=== PATIENT | male | born 1965 | race Caucasian/White ===

== ENCOUNTER 2017-10-15 10:50 | Emergency (ER) | payer OTHER ==
[~2017-10-15] VITALS: Ht 188 cm; Wt 101.2 kg
[2017-10-15 10:54] VITALS: BP 154/93
--- NOTE | 2017-10-15 12:26 | ED ANKLE/FOOT INJURY COMPLAINT ---
History of Present Illness General Chief Complaint: Foot or Ankle Injury Stated Complaint: LT FOOT PAIN Source: patient Exam Limitations: no limitations Vital Signs & Intake/Output Vital Signs & Intake/Output Vital Signs Date Time Temp Pulse Resp B/P B/P Pulse O2 O2 Flow FiO2 Mean Ox Delivery Rate 10/15 1054 98.0 72 18 154/93 98 Room Air ED Intake and Output 10/16 0000 10/15 1200 Intake Total Output Total Balance Patient 223 lb Weight Allergies Coded Allergies: Penicillins (Intermediate, VOMITING, HIVES 10/15/17) Triage Note: 51M STEPPED ON A ROCK ON 10/08 AND FOOT GOT CAUGHT AND BENT BACK WHILE WORKING. WAS TOLD HE HAS TO HAVE IT CHECKED OUT FOR CLEARANCE TO GO BACK TO WORK. AMBULATORY WITH STEADY GAIT. STATES IT GETS SWOLLEN AT TIMES. Triage Nurses Notes Reviewed? yes Occurred: 10/08 Duration: week(s): (1), better, continues in ED Timing: single episode today Severity: mild, moderate Severity Numbers: 6 Pain/Injury Location: Left: Foot, Ankle. Method of Injury: twisted No Modifying Factors: none HPI: 51-year-old male with no medical history presents for evaluation of pain and swelling to his left foot and ankle. Patient reports that on October 08 of this year he stepped on a rock causing his left foot and ankle to twist. He did not fall there is no history of loss of consciousness. He reports since then he has had pain and swelling over the dorsum of the foot and the lateral malleolus. He has been able to walk without difficulty. He states that the pain is swelling will come and go usually is worse after walking. He's been taking ibuprofen and icing it with some improvement. No numbness or tingling in her knee pain no other injuries. (Orlando Tyson) Past History Travel History Traveled to [place] past 21 day No Medical History Any Pertinent Medical History? see below for history Surgical History Surgical History: non-contributory Psychosocial History What is your primary language Colombian Tobacco Use: Never used Family History Hx Contributory? No (Orlando Tyson) Review of Systems Review of Systems Constitutional: Reports: no symptoms. EENTM: Reports: no symptoms. Respiratory: Reports: no symptoms. Cardiovascular: Reports: no symptoms. GI: Reports: no symptoms. Genitourinary: Reports: no symptoms. Musculoskeletal: Reports: joint pain, joint swelling. Skin: Reports: no symptoms. Neurological/Psychological: Reports: no symptoms. Hematologic/Endocrine: Reports: no symptoms. Immunologic/Allergic: Reports: no symptoms. All Other Systems: Reviewed and Negative (Orlando Tyson) Physical Exam Physical Exam General Appearance: well developed/nourished, no apparent distress, alert, awake Head: atraumatic, normal appearance Eyes: Bilateral: normal appearance, EOMI. Ears, Nose, Throat: hearing grossly normal Neck: normal inspection, supple, full range of motion Cardiovascular/Respiratory: no respiratory distress Leg/Knee/Thigh Left: normal range of motion, normal inspection Leg/Knee/Thigh Right: normal range of motion, normal inspection Ankle Left: normal range of motion, soft tissue tenderness, swelling, tenderness , there is mild soft tissue swelling and tenderness palpation in the area of the lateral malleolus. No bruising no gross deformity for range motion is intact neurovascular spine attacked Ankle Right: normal inspection, normal range of motion Foot Left: normal range of motion, there is mild soft tissue swelling and tenderness over the dorsum of the foot. No bruising no lacerations or abrasions. Full range motion is intact neurovascular spine attacked patient is able to walk and bear weight without difficulty Foot Right: normal inspection, normal range of motion Neuro/Vascular: normal motor function, normal sensation Tendon: normal tendon function Skin: intact, normal color, warm/dry (Orlando Tyson) Progress Differential Diagnosis: cellulitis, gout, fracture, dislocation, sprain, contusion Plan of Care: Patient is here for evaluation of left foot and ankle pain after an injury about one week ago. On exam his pain and swelling of the dorsum of the foot and lateral malleolus. Full range motion is intact. Walking bear weight. X-rays were obtained and are negative for fracture. Arun wrap applied advised rest ice elevation compression. Patient declines crutches. Continue ibuprofen as needed for pain. Patient was advised to rest he was given a work note. Follow-up with primary care doctor or podiatry. Discussed return precautions patient agrees the plan Diagnostic Imaging: Viewed by Me: Radiology Read. Discussed w/RAD: Radiology Read. Radiology Impression: PATIENT: DALE GAMBLE PRESENT AGE: 51 PATIENT ACCOUNT NO: [id number] : 65 LOCATION: [facility] ORDERING PHYSICIAN: Orlando TOLENTINO SERVICE DATE: 10/15/17 EXAM TYPE: RAD - XRY- ANKLE 3 OR MORE VIEWS L; XRY-FOOT COMPLETE, LEFT EXAMINATION: LEFT ANKLE 3 VIEWS LEFT FOOT 3 VIEWS CLINICAL INFORMATION: Left ankle and foot pain. Assess for fracture. COMPARISON: None. TECHNIQUE: AP, lateral and mortise views of the left ankle were obtained. AP, lateral and oblique views of the left foot were obtained. FINDINGS: Left ankle: There is normal alignment of the osseous structures. The mortise of the ankle joint is maintained. No fractures are demonstrated. The soft tissues are unremarkable. There is no joint effusion. There is an Achilles calcaneal spur. There is an accessory ossicle along the lateral mid foot. There are no radiodense foreign bodies. Left foot: There is anatomic alignment of the osseous structures. There is narrowing of the joint space of the first MP joint with sclerotic changes. There are osteophytes at the IP joint of the great toe, and there narrowing of multiple IP joints in the other toes. No fractures are demonstrated. There is an accessory ossicle laterally. There are no radiodense foreign bodies. There is mild soft tissue swelling along the plantar aspect of the mid foot. As described above, there is an Achilles calcaneal spur. There are no radiodense foreign bodies. IMPRESSION: 1. There are no acute fractures or subluxations in the ankle or foot. 2. There are degenerative changes in the left foot. 3. There is mild soft tissue swelling along the plantar aspect of the midfoot. DICTATED BY: Andrez Poon MD DATE/TIME DICTATED:10/15/171213 VISUAL DISPLAY MANAGER:FANNIE DATE/TIME TRANSCRIBED:1213 CONFIDENTIAL, DO NOT COPY WITHOUT APPROPRIATE AUTHORIZATION. (Orlando Tyson) Departure Departure Disposition: HOME OR SELF CARE Condition: Stable Clinical Impression Primary Impression: Foot sprain Qualifiers: Encounter type: initial encounter Laterality: left Qualified Code: S93.602A - Unspecified sprain of left foot, initial encounter Referrals: Carlos Quintanilla DPM Patient Has No Primary Care Dr (PCP/Family) Additional Instructions: Rest, keep your foot elevated. Wear Arun wrap. Apply ice for 15-20 minutes every few hours. Ibuprofen 800 mg every 8 hours with food as needed for pain. Make a follow-up with Dr. Quintanilla neurological surgery teacher as soon as possible for recheck. Monitor symptoms return with any concerns. Departure Forms: Customer Survey General Discharge Information Industrial Accident Report (Orlando Tyson) PA/EQUIPMENT OPERATOR Co-Sign Statement Statement: ED Attending supervision documentation- [] I saw and evaluated the patient. I have also reviewed all the pertinent lab results and diagnostic results. I agree with the findings and the plan of care as documented in the PA's/EQUIPMENT OPERATOR's documentation. [X] I have reviewed the ED Record and agree with the PA's/EQUIPMENT OPERATOR's documentation. [] Additions or exceptions (if any) to the PAs/EQUIPMENT OPERATOR's note and plan are summarized below: [] (Blair CASTELLANOS,Jacinto Wong)
== END 2017-10-15 12:46 ==
LOC: ERH 10:50
DX: S93.602A Unspecified sprain of left foot, initial encounter (principal); X58.XXXA Exposure to other specified factors, initial encounter; Y92.9 Unspecified place or not applicable; Y93.9 Activity, unspecified
CPT/HCPCS: 73610-LT; 73630-LT